=== PATIENT | female | born 1960 | race Caucasian/White ===

== ENCOUNTER 2016-08-16 15:00 | Outpatient (CLI) | payer SELFPAY ==
--- NOTE | 2016-08-16 16:25 | DIAGNOSTIC IMAGING REPORT ---
PROCEDURE: MG BILATERAL DIAGNOSTIC W/CAD INDICATION: Palpable area in medial right breast. TECHNIQUE: CC and MLO digital views of each breast with true-lateral digital view of the right breast. In addition, spot compression CC and MLO views were obtained of the medial right breast (region of clinical concern). Finally, high-resolution right breast ultrasound was performed (18 mHz). COMPARISON: Comparison made to prior mammogram studies from [facility] on 04/15/2013, 05/23/2011, and 05/16/2011. FINDINGS: MAMMOGRAM: Computer-aided detection applied. Moderately dense parenchymal pattern. No evidence of mass or suspicious calcification. BREAST ULTRASOUND: There is a partially collapsed cyst in the medial right breast (10 mm x 1 mm). No evidence of suspicious abnormality. IMPRESSION: 1. There is a partially collapsed simple cyst in the medial right breast which may account for the palpable area. 2. Otherwise negative mammogram and right breast ultrasound. 3. Resume routine screening schedule (July 2017). 4. Findings discussed with the patient. RESULT CODE: 2- Benign finding(s). A. A negative report should not delay biopsy if a dominant or clinically suspicious mass is present. 10-15% of cancers are not identified by x-ray. B. A negative report may reinforce clinical impression. C. Adenosis and dense breasts may obscure an underlying neoplasm. D. False positive reports average 6-10%. E.. A yearly screening mammogram is recommended. A reminder letter will be scheduled.
== END 2016-08-16 23:00 ==
LOC: MAM SRH 15:00
DX: N63 Unspecified lump in breast (principal)